=== PATIENT | female | born 2000 | race Caucasian/White ===

== ENCOUNTER 2023-03-14 18:08 | Emergency (ER) | payer SELFPAY ==
[2023-03-14 18:21] VITALS: BP 131/84; PULSE 109; RESP 17; TEMP 36.8; O2SAT 100; BMI 19.8
--- NOTE | 2023-03-14 19:05 | [facility].EDGENADL ---
Discharge Plan Disposition Patient Disposition: Home, Self-Care Prescriptions Prescriptions: New ibuprofen 800 mg tablet 800 mg PO TID PRN (Reason: pain) 7 Days Qty: 20 0RF promethazine 12.5 mg suppository 12.5 mg RI TID PRN (Reason: nausea and vomiting) Qty: 12 0RF Rx Instructions: do not give 3rd daily dose after evening meal or within 4hr before bed promethazine 25 mg tablet 25 mg PO TID PRN (Reason: nausea and vomiting) 5 Days Qty: 20 0RF clonidine HCl 0.1 mg tablet 0.1 mg PO Q8H PRN (Reason: withdrawal symptoms) 5 Days Qty: 15 0RF loperamide 2 mg capsule 2 mg PO Q6H PRN (Reason: loose stool) 5 Days Qty: 20 0RF Rx Instructions: Please take 4 mg initially, followed by 2 mg after each loose stool, maximum 16 mg/day Referrals Follow up/Referrals: Provider,Referral, MD [Primary Care Provider] - See instructions Activity Restrictions/Add. Instructions Additional Instructions/Restrictions: Please follow-up with the opiate addiction clinics and the resources that you were given from the emergency department. Clinical Impressions Clinical Impression: Acute opioid withdrawal Discharge ED Provider: Brandon Ferro General Adult HPI General Chief complaint: PAIN Stated complaint: Right eye irritation Time Seen by Provider: 03/14/23 18:50 Mode of Arrival: Ambulatory Source of Information: Patient Limitations: No Limitations Description of Symptoms (Recalled from ER Triage Doc. by RN): Pt. reports right eye pain for 2-3 days. Right eye is somewhat swollen and red. No drainage noted. Pt. states she is withdrawaling from fentanyl and meth. She states she last had any drugs was 2 days ago. She also states she is homeless at this time. History of Present Illness HPI narrative: Patient is a 22-year-old female present today with multiple complaints she told nurses initially she was here for a swollen area in the medial aspect of her right eye however her primary concern to me was opiate withdrawal. She states she has been smoking and occasionally injecting fentanyl and meth for years and daily over the last 6 months since she last used yesterday and is having withdrawal symptoms. This includes piloerection some nausea some body aches. She has for resources. She is from [place] but is currently living in [place] with her father. She recently was homeless. Related Data Previous Rx's Medication Instructions Recorded clonidine HCl 0.1 mg tablet 0.1 mg PO Q8H PRN withdrawal 03/14/23 symptoms 5 days #15 tabs ibuprofen 800 mg tablet 800 mg PO TID PRN pain 7 days #20 03/14/23 tabs loperamide 2 mg capsule 2 mg PO Q6H PRN loose stool 5 days 03/14/23 #20 caps promethazine 12.5 mg rectal 12.5 mg RI TID PRN nausea and 03/14/23 suppository vomiting #12 ea promethazine 25 mg tablet 25 mg PO TID PRN nausea and 03/14/23 vomiting 5 days #20 tabs Allergies Allergy/AdvReac Type Severity Reaction Status Date / Time No Known Allergies Allergy Verified 03/14/23 18:26 [facility] Disclaimer: The information contained in this section may have been updated after the patient was seen, as this information can be updated by other users. Medical History (Updated 03/14/23 @ 19:04 by Brandon Ferro MD) Drug abuse, IV Drug use No significant past medical history Surgical History (Updated 03/14/23 @ 18:29 by Rita Lee RN) [place] teeth extracted Family History (Updated 03/14/23 @ 18:29 by Rita Lee RN) Other No significant family history Social History (Updated 03/14/23 @ 18:29 by Rita Lee RN) Smoking Status: Current every day smoker tobacco type: cigarettes alcohol intake: never substance use type: opiates, IV drugs and methamphetamine current occupational status: unemployed Travel in the last 8 weeks: None housing: homeless ROS Obtained: Yes All systems reviewed & no additional complaints except as documented Physical Exam General General ap
[2023-03-14 19:17] VITALS: BP 128/82; PULSE 98; RESP 20; TEMP 36.8; O2SAT 98
== END 2023-03-14 19:22 | disposition home or self-care (01) ==
PROVIDERS: Emergency Provider Student in an Organized Health Care Education/Training Program
DX: F11.23 Opioid dependence with withdrawal (principal); R11.0 Nausea; F17.210 Nicotine dependence, cigarettes, uncomplicated; Z59.00 Homelessness unspecified
CPT/HCPCS: 99283; 99284